=== PATIENT | male | born 1995 | race African-American/Black ===

== ENCOUNTER 2019-11-24 05:13 | Emergency (ER) | payer SELFPAY ==
[~2019-11-24] VITALS: Ht 170.2 cm; Wt 62.4 kg
[2019-11-24 05:15] VITALS: BP 130/73
[2019-11-24] MEDS ORDERED: MAALOX/HYOSCYAMINE/LIDOCAINE 45 ML BTL PO ONE (05:30)
[2019-11-24] MEDS ORDERED: BENZOCAINE 20% SPRAY 0.5ML TP ONE (05:30)
[2019-11-24] MEDS ORDERED: MAALOX/HYOSCYAMINE/LIDOCAINE 45 ML BTL ONE (05:31)
[2019-11-24] MEDS ORDERED: BENZOCAINE 20% SPRAY 0.5ML ONE (05:34)
--- NOTE | 2019-11-24 05:39 | NUR ---
PT PRESENTS WITH C/O DENTAL PAIN. REPORTS TAKING MOTRIN W/O RELIEF.
== END 2019-11-24 06:06 | disposition home or self-care (01) ==
LOC: ED 05:58
DX: K04.7 Periapical abscess without sinus (principal)
CPT/HCPCS: 41800; 99284